=== PATIENT | female | born 1960 | race Caucasian/White ===

== ENCOUNTER 2022-06-04 14:03 | Emergency (ER) | payer MEDICAID, OTHER ==
[~2022-06-04] VITALS: Ht 172.7 cm; Wt 56.7 kg
[2022-06-04] MEDS ORDERED: IV NORMAL SALINE 1000 ML BAG IV ONE (14:45)
[2022-06-04] MEDS ORDERED: ANAS1TAB50 PO (14:50)
[2022-06-04] MEDS ORDERED: FOLI1TAB27 PO (14:50)
[2022-06-04] MEDS ORDERED: ROSU10TA2 PO (14:50)
[2022-06-04] MEDS ORDERED: THIA100T70 PO (14:51)
[2022-06-04] MEDS ORDERED: MULT400T12 PO (14:51)
[2022-06-04 15:31] LABS: CREATININE 0.5 mg/dL (0.6-1.3); POTASSIUM 3.7 mmol/L (3.5-5.1)
[2022-06-04 15:32] LABS: HEMATOCRIT 35.1 % (31.2-41.9); MEAN CORPUSCULAR HEMOGLOBIN 32.3 uug (24.7-32.8); MEAN CORPUSCULAR VOLUME 93.2 fL (75.5-95.3); PLATELET COUNT (AUTO) 226 K/uL (179-408)
[2022-06-04 15:36] LABS: BILIRUBIN,TOTAL 0.3 mg/dL (0.2-1.0); TOTAL PROTEIN, SERUM 8.2 g/dL (6.4-8.2)
--- NOTE | 2022-06-04 16:26 | NUR ---
IV removed. Catheter intact and site benign. Pressure and 4x4 gauze applied to site. No bleeding noted. Patient discharged to home in stable condition with brisk steady gait. Written and verbal after care instructions given to patient. Patient verbalized understanding and compliance of instructions but refused to sign the discharge papers, witnessed by chargemaster analyst Grace. Stressed follow up [facility] primary doctor and drug rehab for alcohol abuse or return to ER for worsening s/s.
== END 2022-06-04 16:26 | disposition home or self-care (01) ==
LOC: ER 14:06
DX: S00.11XA Contusion of right eyelid and periocular area, initial encounter (principal); W01.0XXA Fall on same level from slipping, tripping and stumbling without subsequent striking against object, initial encounter; Y92.89 Other specified places as the place of occurrence of the external cause; F10.10 Alcohol abuse, uncomplicated; Y90.8 Blood alcohol level of 240 mg/100 ml or more; Z98.82 Breast implant status; Z88.2 Allergy status to sulfonamides; R74.01 Elevation of levels of liver transaminase levels
CPT/HCPCS: 80053; 85025; 36415; 70450; 99284; 96360; 80320; J7040; A4663; G0480

== ENCOUNTER 2023-02-11 19:39 | Emergency (ER) | payer MEDICAID ==
[~2023-02-11] VITALS: Ht 167.6 cm; Wt 54.4 kg
[~2023-02-11 19:39] MED LIST: ANAS1TAB50 PO; FOLI1TAB27 PO; MULT400T12 PO; ROSU10TA2 PO; THIA100T70 PO
--- NOTE | 2023-02-11 19:42 | NUR ---
DR Ruelas at bedside MSE in progress
[2023-02-11] MEDS ORDERED: ACETAMINOPHEN ES 500 MG TABLET ONE (19:59)
[2023-02-11] MEDS ORDERED: IV NORMAL SALINE 1000 ML BAG IV ONE (20:00)
[2023-02-11] MEDS ORDERED: ACETAMINOPHEN ES 500 MG TABLET PO ONE (20:00)
[2023-02-11 20:15] LABS: HEMATOCRIT 38.6 % (31.2-41.9); MEAN CORPUSCULAR HEMOGLOBIN 31.4 uug (24.7-32.8); PLATELET COUNT (AUTO) 168 K/uL (179-408)
--- NOTE | 2023-02-11 20:18 | NUR ---
Pt is started on IVF 0.9NS [id number] and also received Tyeno 1000mg PO as ordered. Pt care continue.
[2023-02-11 20:27] LABS: CARBON DIOXIDE 28 mmol/L (21-32); CHLORIDE 104 mmol/L (98-107); CREATININE 0.4 mg/dL (0.6-1.3); GLUCOSE 104 mg/dL (74-106); POTASSIUM 3.8 mmol/L (3.5-5.1); UREA NITROGEN, BLOOD 13 mg/dL (7-18)
[2023-02-11 20:33] LABS: ALANINE AMINOTRANSFERASE 48 U/L (14-59); ALKALINE PHOSPHATASE 80 U/L (50-136); ASPARTATE AMINOTRANSFERASE 62 U/L (15-37); BILIRUBIN,DIRECT 0.1 mg/dL (0.0-0.2); BILIRUBIN,TOTAL 0.4 mg/dL (0.2-1.0); TOTAL PROTEIN, SERUM 8.3 g/dL (6.4-8.2)
[2023-02-11 20:40] LABS: THYROID STIMULATING HORMONE 2.297 mIU/mL (0.358-3.740)
--- NOTE | 2023-02-11 21:03 | NUR ---
Pt is noted off the Unit To CT. Pt care continue.
--- NOTE | 2023-02-11 21:40 | NUR ---
Pt is back from CT. Pt care continue.
--- NOTE | 2023-02-11 22:55 | NUR ---
Pt is stable as [employer] unit #[id number] Show up stated that Pt was reported missing as updates given to officers by MD on Pt condition and reasons why she came in the ER. Pt care continue.
--- NOTE | 2023-02-11 23:04 | NUR ---
Pt is noted off the unit with [employer] UNIT [id number] amanuel [place] will take Pt home as she is been discharge to home with all discharge instructions given and is stable.
[2023-02-11 23:07] VITALS: BP 132/68
== END 2023-02-11 23:09 | disposition home or self-care (01) ==
LOC: ER 19:39
DX: F10.10 Alcohol abuse, uncomplicated (principal); R07.89 Other chest pain; M79.642 Pain in left hand; R51.9 Headache, unspecified; E78.00 Pure hypercholesterolemia, unspecified; Z88.2 Allergy status to sulfonamides; Z79.899 Other long term (current) drug therapy; Y90.8 Blood alcohol level of 240 mg/100 ml or more
CPT/HCPCS: 80076; 80048; 84443; 85025; 85730; 36415; 93005; 71045; 73110; 73130; 70450; 70486; 72125; 99285; 96360; 96361; 80320; J7040; A4663; A9150; G0480

== ENCOUNTER 2023-03-29 22:44 | Emergency (ER) | payer MEDICAID ==
[~2023-03-29] VITALS: Ht 172.7 cm; Wt 55.3 kg
--- NOTE | 2023-03-29 23:00 | NUR ---
PT BIBA TO 3A WITH C/O INFECTED TOE AND GL TRIP AND FALL.
[2023-03-29] MEDS ORDERED: THIAMINE HCL 100 MG TABLET PO ONE (23:30)
[2023-03-29 23:36] LABS: HEMATOCRIT 38.1 % (31.2-41.9); MEAN CORPUSCULAR HEMOGLOBIN 30.9 uug (24.7-32.8); MEAN CORPUSCULAR VOLUME 90.8 fL (75.5-95.3); PLATELET COUNT (AUTO) 109 K/uL (179-408)
[2023-03-29 23:43] LABS: CREATININE 0.6 mg/dL (0.6-1.3); POTASSIUM 3.7 mmol/L (3.5-5.1)
[2023-03-29 23:48] LABS: BILIRUBIN,DIRECT 0.2 mg/dL (0.0-0.2); BILIRUBIN,TOTAL 0.5 mg/dL (0.2-1.0)
[2023-03-30] MEDS ORDERED: MAGNESIUM SULFATE/D5W 100 ML ONE ×2 (00:23→00:50)
[2023-03-30] MEDS ORDERED: THIAMINE HCL 100 MG TABLET ONE (00:23)
[2023-03-30] MEDS: MAGNESIUM SULFATE/D5W 100 ML IV SCH ×2 (00:30→01:15)
--- NOTE | 2023-03-30 00:50 | NUR ---
LAB CALLED WITH CRITICAL VALUE, ETOH - 335. AWARE.
[2023-03-30] MEDS ORDERED: CHLO25CA22 PO (01:13)
--- NOTE | 2023-03-30 01:25 | NUR ---
PT UP OOB AMB TO BR WITH STEADY GAIT.
--- NOTE | 2023-03-30 01:35 | NUR ---
PT WAS A , A AND O X 4 WITH NO C/O PAIN AND NAD OBSERVED.Patient discharged to home in stable condition. Written and verbal after care instructions given. Patient verbalizes understanding of instructions. Stressed follow up or return to ER for worsening s/s. A TAXI VOUCHER WAS OBTAINED FROM NURSING DIRECTOR WHOLESALE AND TAXI WAS CALLED.
--- NOTE | 2023-03-30 01:35 | NUR ---
PT DISCHARGED, WAITING FOR TAXI.
[2023-03-30 02:12] VITALS: BP 127/72; TEMP 98.7; O2SAT 95
== END 2023-03-30 01:35 | disposition home or self-care (01) ==
LOC: ER 22:44
DX: S06.0X0A Concussion without loss of consciousness, initial encounter (principal); S90.111A Contusion of right great toe without damage to nail, initial encounter; K75.9 Inflammatory liver disease, unspecified; E83.42 Hypomagnesemia; F10.20 Alcohol dependence, uncomplicated; Z88.2 Allergy status to sulfonamides; Z79.899 Other long term (current) drug therapy; W01.0XXA Fall on same level from slipping, tripping and stumbling without subsequent striking against object, initial encounter; Y93.89 Activity, other specified; Y92.89 Other specified places as the place of occurrence of the external cause; Y99.8 Other external cause status; Y90.8 Blood alcohol level of 240 mg/100 ml or more
CPT/HCPCS: 80076; 80048; 83735; 85025; 36415; 73660; 70450; 99285; 80320; 96365; J3475 ×2; A4663; G0480

== ENCOUNTER 2023-04-02 04:09 | Emergency (ER) | payer MEDICAID ==
[~2023-04-02] VITALS: Ht 172.7 cm; Wt 56.7 kg
[~2023-04-02 04:09] MED LIST changes: +CHLO25CA22 PO
--- NOTE | 2023-04-02 04:25 | NUR ---
Dr. Ortiz evaluating patient at bedside. MSE in progress.
[2023-04-02 04:54] LABS: HEMATOCRIT 38.3 % (31.2-41.9); MEAN CORPUSCULAR VOLUME 91.3 fL (75.5-95.3); PLATELET COUNT (AUTO) 111 K/uL (179-408)
--- NOTE | 2023-04-02 05:42 | NUR ---
Patient sleeping comfortably in bed, eyes closed. No signs of acute distress noted.
[2023-04-02] MEDS ORDERED: MAGN64TA13 PO (05:59)
--- NOTE | 2023-04-02 07:17 | NUR ---
Received report from Frieda WATKINS
--- NOTE | 2023-04-02 07:20 | NUR ---
Asleep in bed at this time
--- NOTE | 2023-04-02 08:44 | NUR ---
remains asleep at this time. VSS
--- NOTE | 2023-04-02 09:53 | NUR ---
PT. woke up, able to walk with no difficulties
--- NOTE | 2023-04-02 09:53 | NUR ---
Patient discharged to home in stable condition. Written and verbal after care instructions given. Patient verbalizes understanding of instructions. Stressed follow up or return to ER for worsening s/s.
[2023-04-02 09:55] VITALS: BP 117/74; TEMP 98; O2SAT 99
== END 2023-04-02 09:55 | disposition home or self-care (01) ==
LOC: ER 04:09
DX: S90.411D Abrasion, right great toe, subsequent encounter (principal); F10.129 Alcohol abuse with intoxication, unspecified; M79.674 Pain in right toe(s); Z88.2 Allergy status to sulfonamides; Z79.899 Other long term (current) drug therapy; W18.39XD Other fall on same level, subsequent encounter; Y90.8 Blood alcohol level of 240 mg/100 ml or more
CPT/HCPCS: 36415; 83735; 85025; A4663; G0480

== ENCOUNTER 2023-05-16 12:22 | Emergency (ER) | payer MEDICAID ==
[~2023-05-16] VITALS: Ht 172.7 cm; Wt 54.4 kg
[~2023-05-16 12:22] MED LIST changes: +MAGN64TA13 PO
[2023-05-16] MEDS ORDERED: IV NORMAL SALINE 1000 ML BAG IV ONE (12:45)
[2023-05-16 12:57] LABS: BASOPHILS % (AUTO) 0.3 % (0.0-2.0); EOSINOPHILS # (AUTO) 0.1 K/uL (0.0-0.7); EOSINOPHILS % (AUTO) 1.7 % (0.0-7.0); HEMATOCRIT 38.6 % (31.2-41.9); HEMOGLOBIN 12.9 g/dL (10.9-14.3); LYMPHOCYTES # (AUTO) 2.9 K/uL (0.8-4.8); LYMPHOCYTES % (AUTO) 35.7 % (20.5-51.5); MEAN CORPUSCULAR HEMOGLOBIN 30.9 uug (24.7-32.8); MEAN CORPUSCULAR HGB CONC 33 g/dL (32.3-35.6); MEAN CORPUSCULAR VOLUME 92.8 fL (75.5-95.3); MONOCYTES # (AUTO) 0.4 K/uL (0.1-1.30); MONOCYTES % (AUTO) 4.7 % (0.0-11.0); NEUTROPHILS # (AUTO) 4.7 K/uL (1.8-8.9); NEUTROPHILS % (AUTO) 57.6 % (38.5-71.5); PLATELET COUNT (AUTO) 261 K/uL (179-408); RED BLOOD CELL COUNT(AUTO) 4.17 MIL/uL (3.63-4.92); RED CELL DISTRIBUTION WIDTH 13.7 % (12.3-17.7); WHITE BLOOD COUNT (AUTO) 8.1 K/uL (3.8-11.8)
[2023-05-16 13:07] LABS: DIFFERENTIAL COMMENT 1
[2023-05-16 13:10] LABS: CALCIUM 9.4 mg/dL (8.5-10.1); CARBON DIOXIDE 29 mmol/L (21-32); CHLORIDE 106 mmol/L (98-107); CREATININE 0.5 mg/dL (0.6-1.3); GLUCOSE 114 mg/dL (74-106); POTASSIUM 3.4 mmol/L (3.5-5.1); SODIUM SERUM 146 mmol/L (136-145); UREA NITROGEN, BLOOD 12 mg/dL (7-18)
[2023-05-16 13:19] LABS: ALANINE AMINOTRANSFERASE 18 U/L (14-59); ALBUMIN 3.5 g/dL (3.4-5.0); ALKALINE PHOSPHATASE 58 U/L (50-136); ASPARTATE AMINOTRANSFERASE 18 U/L (15-37); BILIRUBIN,DIRECT < 0.1 mg/dL (0.0-0.2); BILIRUBIN,TOTAL 0.3 mg/dL (0.2-1.0); TOTAL PROTEIN, SERUM 8.2 g/dL (6.4-8.2)
[2023-05-16 14:24] VITALS: BP 116/88; O2SAT 99
== END 2023-05-16 14:30 | disposition home or self-care (01) ==
LOC: ER 12:27 → MERGE 12:27 → ER 14:30
DX: F10.20 Alcohol dependence, uncomplicated (principal); R55 Syncope and collapse; R07.89 Other chest pain; E78.5 Hyperlipidemia, unspecified; Z88.2 Allergy status to sulfonamides; Z79.899 Other long term (current) drug therapy; Y90.9 Presence of alcohol in blood, level not specified
CPT/HCPCS: 99285; 96360; 70450; 71045; 80076; 80048; 85025; 85730; 84484; 93005; J7040; A4663

== ENCOUNTER 2023-05-16 19:39 | Emergency (ER) | payer MEDICAID ==
[~2023-05-16] VITALS: Ht 157.5 cm; Wt 54.4 kg
[2023-05-16] MEDS ORDERED: LORAZEPAM 2 MG/1 ML VIAL IM ONE (20:30)
[2023-05-16] MEDS ORDERED: LORAZEPAM 2 MG/1 ML VIAL ONE (20:30)
[2023-05-16] MEDS ORDERED: HALOPERIDOL LACTATE 5 MG/1 ML VIAL IM ONE (20:30)
[2023-05-16] MEDS ORDERED: HALOPERIDOL LACTATE 5 MG/1 ML VIAL ONE (20:30)
[2023-05-16] MEDS ORDERED: LACOSAMIDE 200 MG in IV NORMAL SALINE 100 ML IV ONE (20:45)
[2023-05-16 22:05] VITALS: O2SAT 96
== END 2023-05-17 00:25 | disposition short-term general hospital (02) ==
LOC: ER 19:40
DX: R55 Syncope and collapse (principal); F29 Unspecified psychosis not due to a substance or known physiological condition; F10.129 Alcohol abuse with intoxication, unspecified; E78.5 Hyperlipidemia, unspecified; Z88.2 Allergy status to sulfonamides; Z79.899 Other long term (current) drug therapy; Z20.822 Contact with and (suspected) exposure to COVID-19; Y90.8 Blood alcohol level of 240 mg/100 ml or more
CPT/HCPCS: 87426; 36415; 99285; 96372 ×2; 80320; J1630; J2060; A4663; G0480

== ENCOUNTER 2023-09-21 14:20 | Emergency (ER) | payer MEDICAID ==
[~2023-09-21] VITALS: Ht 165.1 cm; Wt 63.5 kg
[2023-09-21 14:28] VITALS: O2SAT 98
== END 2023-09-21 14:43 | disposition left against medical advice (07) ==
LOC: ER 14:21
DX: Z53.21 Procedure and treatment not carried out due to patient leaving prior to being seen by health care provider (principal)
CPT/HCPCS: A4606; A4663

== ENCOUNTER 2024-02-11 22:32 | Emergency (ER) | payer MEDICAID ==
[~2024-02-11] VITALS: Ht 172.7 cm; Wt 56.7 kg
[2024-02-11] MEDS ORDERED: IV NS 1000 ML 1,000 ML IV ONE (23:00)
[2024-02-11 23:12] LABS: HEMATOCRIT 35.5 % (31.2-41.9); HEMOGLOBIN 12.3 g/dL (10.9-14.3); WHITE BLOOD COUNT (AUTO) 7.3 K/uL (3.8-11.8)
[2024-02-11 23:27] LABS: BASOPHILS # (AUTO) 0.1 K/UL (0.0-0.2); BASOPHILS % (AUTO) 1.5 % (0.0-2.0); CALCIUM 8.7 mg/dL (8.5-10.1); CREATININE 0.6 mg/dL (0.6-1.3); DIFFERENTIAL COMMENT 0; EOSINOPHILS # (AUTO) 0.3 K/uL (0.0-0.7); EOSINOPHILS % (AUTO) 3.6 % (0.0-7.0); LYMPHOCYTES # (AUTO) 1.3 K/uL (0.8-4.8); MEAN CORPUSCULAR HEMOGLOBIN 30.9 uug (24.7-32.8); MEAN CORPUSCULAR HGB CONC 35 g/dL (32.3-35.6); MEAN CORPUSCULAR VOLUME 88.7 fL (75.5-95.3); MONOCYTES # (AUTO) 0.5 K/uL (0.1-1.30); MONOCYTES % (AUTO) 6.7 % (0.0-11.0); NEUTROPHILS # (AUTO) 5.1 K/uL (1.8-8.9); NEUTROPHILS % (AUTO) 70.2 % (38.5-71.5); PLATELET COUNT (AUTO) 160 K/uL (179-408); POTASSIUM 3.3 mmol/L (3.5-5.1)
[2024-02-11 23:39] LABS: ALBUMIN 3.5 g/dL (3.4-5.0); BILIRUBIN,TOTAL 0.3 mg/dL (0.2-1.0); MAGNESIUM 1.5 mg/dL (1.8-2.4); TOTAL PROTEIN, SERUM 7.6 g/dL (6.4-8.2)
[2024-02-11] MEDS ORDERED: MVI-12 10 ML IV ONE (23:45)
[2024-02-11] MEDS ORDERED: MVI-12 10 ML ONE (23:56)
[2024-02-11] MEDS ORDERED: THIAMINE HCL 100 MG TABLET ONE (23:56)
[2024-02-12] MEDS: IV 1/2NS 1000 ML 1,000 ML IV ONE (00:01)
[2024-02-12] MEDS ORDERED: THIAMINE HCL 200 MG/2 ML VIAL ONE (00:10)
[2024-02-12] MEDS: THIAMINE HCL 200 MG/2 ML VIAL IV ONE (00:12)
[2024-02-12] MEDS ORDERED: MAGNESIUM SULFATE 1 GM/2 ML VIAL ONE (00:27)
[2024-02-12] MEDS ORDERED: POTASSIUM CHLORIDE 20 MEQ TAB.PRT.SR ONE (00:28)
[2024-02-12] MEDS: NORMAL SALINE IV ONE (00:30)
[2024-02-12] MEDS: MVI ADULT IV ONE (00:30)
[2024-02-12] MEDS: POTASSIUM CHLORIDE 20 MEQ TAB.PRT.SR PO ONE (00:35)
[2024-02-12] MEDS: MAGNESIUM SULFATE 2 GM in IV DEXTROSE 5% 100 ML IV ONE (00:40)
[2024-02-12 03:06] LABS: *BILIRUBIN,URIN NEGATIVE (NEGATIVE); *BLOOD, URINE 2+ (NEGATIVE); *COLOR,URINE YELLOW (YELLOW); *KETONES,URINE 1+ (NEGATIVE); *PROTEIN,URINE 1+ (NEGATIVE); *UROBILINOGEN,URINE 0.2 E.U./dl (NORMAL); LEUKOCYTE ESTERASE ,URINE TRACE (NEGATIVE); NITRITE, URINE NEGATIVE (NEGATIVE); UGLUCOSE NEGATIVE (NEGATIVE)
[2024-02-12 03:07] LABS: *CLARITY,URINE HAZY (CLEAR)
[2024-02-12 03:16] LABS: RBC,URINE 20-50 /HPF (0-3)
[2024-02-12 03:17] LABS: SQUAMOUS EPITHELIAL CELL,UR FEW /HPF (NONE SEEN); YEAST,URINE FEW /HPF (NONE SEEN)
[2024-02-12] MEDS ORDERED: THIA100T88 PO (03:24)
[2024-02-12] MEDS ORDERED: CEPH500C2 PO (03:24)
[2024-02-12] MEDS ORDERED: MULT-1045 PO (03:24)
[2024-02-12] MEDS ORDERED: FLUCONAZOLE 100 MG TABLET ONE (03:46)
[2024-02-12] MEDS ORDERED: CEphaleXIN 500 MG CAPSULE ONE (03:46)
[2024-02-12] MEDS: FLUCONAZOLE 100 MG TABLET PO ONE (03:51)
[2024-02-12] MEDS: CEphaleXIN 500 MG CAPSULE PO ONE (03:51)
[2024-02-12 06:43] VITALS: BP 114/62; TEMP 97.7; O2SAT 97
== END 2024-02-12 06:15 | disposition home or self-care (01) ==
LOC: ER 22:33
DX: S50.12XA Contusion of left forearm, initial encounter (principal); S00.83XA Contusion of other part of head, initial encounter; F10.129 Alcohol abuse with intoxication, unspecified; F10.10 Alcohol abuse, uncomplicated; R26.9 Unspecified abnormalities of gait and mobility; E87.6 Hypokalemia; E83.42 Hypomagnesemia; N39.0 Urinary tract infection, site not specified; E78.5 Hyperlipidemia, unspecified; Z98.890 Other specified postprocedural states; Z79.899 Other long term (current) drug therapy; Z60.2 Problems related to living alone; Z88.2 Allergy status to sulfonamides; Y90.0 Blood alcohol level of less than 20 mg/100 ml; W18.39XA Other fall on same level, initial encounter; Y93.89 Activity, other specified; Y92.89 Other specified places as the place of occurrence of the external cause; Y99.8 Other external cause status
CPT/HCPCS: 36415; 70450; 71045; 72170; 73090; 83735; 84484; 85025; 85610; A4606; A4663; G0480; J3411; J3475; J3490; J7040

== ENCOUNTER 2024-02-16 16:04 | Emergency (ER) | payer MEDICAID ==
[~2024-02-16] VITALS: Ht 172.7 cm; Wt 57.2 kg
[~2024-02-16 16:04] MED LIST changes: +CEPH500C2 PO; +MULT-1045 PO; +THIA100T88 PO
[2024-02-16] MEDS ORDERED: THIAMINE HCL 100 MG TABLET ONE (16:19)
[2024-02-16] MEDS: THIAMINE HCL 100 MG TABLET PO ONE (16:41)
[2024-02-16] MEDS: IV NORMAL SALINE 1000 ML BAG IV ONE (16:41)
[2024-02-16 16:46] LABS: *BILIRUBIN,URIN NEGATIVE (NEGATIVE); *BLOOD, URINE 2+ (NEGATIVE); *CLARITY,URINE CLOUDY (CLEAR); *COLOR,URINE YELLOW (YELLOW); *KETONES,URINE NEGATIVE (NEGATIVE); *PROTEIN,URINE NEGATIVE (NEGATIVE); *UROBILINOGEN,URINE 0.2 E.U./dl (NORMAL); LEUKOCYTE ESTERASE ,URINE TRACE (NEGATIVE); NITRITE, URINE NEGATIVE (NEGATIVE); UGLUCOSE NEGATIVE (NEGATIVE)
[2024-02-16 16:47] LABS: BASOPHILS % (AUTO) 0.3 % (0.0-2.0); EOSINOPHILS # (AUTO) 0.1 K/uL (0.0-0.7); EOSINOPHILS % (AUTO) 1.8 % (0.0-7.0); HEMATOCRIT 37.1 % (31.2-41.9); HEMOGLOBIN 12.3 g/dL (10.9-14.3); LYMPHOCYTES # (AUTO) 2.8 K/uL (0.8-4.8); LYMPHOCYTES % (AUTO) 38.6 % (20.5-51.5); MEAN CORPUSCULAR HEMOGLOBIN 30.3 uug (24.7-32.8); MEAN CORPUSCULAR HGB CONC 33 g/dL (32.3-35.6); MEAN CORPUSCULAR VOLUME 91.4 fL (75.5-95.3); MONOCYTES # (AUTO) 0.4 K/uL (0.1-1.30); MONOCYTES % (AUTO) 5.5 % (0.0-11.0); NEUTROPHILS # (AUTO) 3.9 K/uL (1.8-8.9); NEUTROPHILS % (AUTO) 53.8 % (38.5-71.5); PLATELET COUNT (AUTO) 276 K/uL (179-408); RED BLOOD CELL COUNT(AUTO) 4.06 MIL/uL (3.63-4.92); RED CELL DISTRIBUTION WIDTH 13.6 % (12.3-17.7); WHITE BLOOD COUNT (AUTO) 7.3 K/uL (3.8-11.8)
[2024-02-16 17:00] LABS: MAGNESIUM 1.8 mg/dL (1.8-2.4)
[2024-02-16 17:02] LABS: CALCIUM 8.9 mg/dL (8.5-10.1); CARBON DIOXIDE 29 mmol/L (21-32); CHLORIDE 105 mmol/L (98-107); CREATININE 0.4 mg/dL (0.6-1.3); GLUCOSE 111 mg/dL (74-106); POTASSIUM 4.1 mmol/L (3.5-5.1); SODIUM SERUM 145 mmol/L (136-145); UREA NITROGEN, BLOOD 11 mg/dL (7-18)
[2024-02-16 17:07] LABS: ACETAMINOPHEN < 10.0 ug/mL (10-30); ALANINE AMINOTRANSFERASE 45 U/L (14-59); ALBUMIN 3.5 g/dL (3.4-5.0); ALKALINE PHOSPHATASE 70 U/L (50-136); ASPARTATE AMINOTRANSFERASE 42 U/L (15-37); BILIRUBIN,TOTAL 0.3 mg/dL (0.2-1.0); TOTAL PROTEIN, SERUM 7.8 g/dL (6.4-8.2)
[2024-02-16 17:13] LABS: DIFFERENTIAL COMMENT 1
[2024-02-16 17:20] LABS: BILIRUBIN,DIRECT < 0.1 mg/dL (0.0-0.2)
[2024-02-16 18:00] VITALS: BP 130/74; TEMP 98; O2SAT 99
[2024-02-16 18:13] LABS: WBC,URINE NONE SEEN /HPF (0-3)
[2024-02-16 18:14] LABS: BACTERIA,URINE FEW /HPF (NONE SEEN); SQUAMOUS EPITHELIAL CELL,UR FEW /HPF (NONE SEEN)
[2024-02-16 19:57] LABS: ETHANOL 254 MG/DL (0-10)
[2024-02-16 19:58] LABS: *AMPHETAMINE, URINE NEGATIVE (NEGATIVE); *BENZODIAZEPINE, URINE POSITIVE (NEGATIVE); *CANNABINOID, URINE NEGATIVE (NEGATIVE); *COCCAINE, URINE NEGATIVE (NEGATIVE); *OPIATE, URINE NEGATIVE (NEGATIVE); *PHENCYCLIDINE SCREEN,URINE NEGATIVE (NEGATIVE); FENTANYL, URINE NEGATIVE (NEGATIVE)
[2024-02-16 20:13] LABS: *BARBITURATE, URINE NEGATIVE (NEGATIVE)
== END 2024-02-16 18:00 | disposition home or self-care (01) ==
LOC: ER 16:04
DX: F10.129 Alcohol abuse with intoxication, unspecified (principal); E86.0 Dehydration; R78.9 Finding of unspecified substance, not normally found in blood; E78.5 Hyperlipidemia, unspecified; Z98.890 Other specified postprocedural states; Z79.899 Other long term (current) drug therapy; Z60.2 Problems related to living alone; Z88.2 Allergy status to sulfonamides; Y90.9 Presence of alcohol in blood, level not specified
CPT/HCPCS: 80076; 80048; 81001; 82607; 83735; 85025; 36415; 99283; 80299; 80320; 80307; J7040; A4606; A4663; G0480

== ENCOUNTER 2024-02-20 15:48 | Emergency (ER) | payer MEDICAID ==
[~2024-02-20] VITALS: Ht 167.6 cm; Wt 57.2 kg
[2024-02-20 16:08] VITALS: O2SAT 99
[2024-02-20] MEDS: IV NORMAL SALINE 1000 ML BAG IV ONE (16:15)
[2024-02-20] MEDS: ONDANSETRON 4 MG/2 ML VIAL IV ONE (16:15)
[2024-02-20 16:38] LABS: BASOPHILS % (AUTO) 0.7 % (0.0-2.0); EOSINOPHILS # (AUTO) 0.1 K/uL (0.0-0.7); EOSINOPHILS % (AUTO) 1.2 % (0.0-7.0); HEMOGLOBIN 12.3 g/dL (10.9-14.3); LYMPHOCYTES % (AUTO) 31.2 % (20.5-51.5); MEAN CORPUSCULAR HEMOGLOBIN 30.3 uug (24.7-32.8); MEAN CORPUSCULAR HGB CONC 33 g/dL (32.3-35.6); MEAN CORPUSCULAR VOLUME 91.2 fL (75.5-95.3); MONOCYTES # (AUTO) 0.3 K/uL (0.1-1.30); NEUTROPHILS # (AUTO) 4.1 K/uL (1.8-8.9); NEUTROPHILS % (AUTO) 62.9 % (38.5-71.5); PLATELET COUNT (AUTO) 259 K/uL (179-408); RED BLOOD CELL COUNT(AUTO) 4.06 MIL/uL (3.63-4.92); WHITE BLOOD COUNT (AUTO) 6.4 K/uL (3.8-11.8)
[2024-02-20 16:54] LABS: ALANINE AMINOTRANSFERASE 36 U/L (14-59); ALBUMIN 3.7 g/dL (3.4-5.0); ALKALINE PHOSPHATASE 71 U/L (50-136); ASPARTATE AMINOTRANSFERASE 44 U/L (15-37); BILIRUBIN,DIRECT 0.1 mg/dL (0.0-0.2); BILIRUBIN,TOTAL 0.3 mg/dL (0.2-1.0); CALCIUM 8.9 mg/dL (8.5-10.1); CARBON DIOXIDE 28 mmol/L (21-32); CHLORIDE 103 mmol/L (98-107); CREATININE 0.4 mg/dL (0.6-1.3); GLUCOSE 93 mg/dL (74-106); POTASSIUM 3.6 mmol/L (3.5-5.1); SODIUM SERUM 140 mmol/L (136-145); TOTAL PROTEIN, SERUM 7.9 g/dL (6.4-8.2); UREA NITROGEN, BLOOD 13 mg/dL (7-18)
[2024-02-20 16:56] LABS: DIFFERENTIAL COMMENT 1
[2024-02-20] MEDS ORDERED: ONDANSETRON 4 MG/2 ML VIAL ONE (17:15)
== END 2024-02-20 18:23 | disposition home or self-care (01) ==
LOC: ER 15:48
DX: F10.129 Alcohol abuse with intoxication, unspecified (principal); E78.5 Hyperlipidemia, unspecified; Z88.2 Allergy status to sulfonamides; Z79.899 Other long term (current) drug therapy; Y90.8 Blood alcohol level of 240 mg/100 ml or more
CPT/HCPCS: 80076; 80048; 85025; 84484; 36415; 93005; 71045; 99285; 96361; 96374; 80320; J2405; J7040; A4606; A4663; G0480

== ENCOUNTER 2024-02-21 15:56 | Emergency (ER) | payer MEDICAID ==
[~2024-02-21] VITALS: Ht 167.6 cm; Wt 57.2 kg
[2024-02-21 16:59] VITALS: BP 133/74; TEMP 97; O2SAT 99
== END 2024-02-21 17:00 | disposition home or self-care (01) ==
LOC: ER 15:58
DX: F10.229 Alcohol dependence with intoxication, unspecified (principal); Z98.890 Other specified postprocedural states; Z79.899 Other long term (current) drug therapy; Z60.2 Problems related to living alone; Z88.2 Allergy status to sulfonamides; Y90.9 Presence of alcohol in blood, level not specified; W18.39XA Other fall on same level, initial encounter; Y93.89 Activity, other specified; Y92.89 Other specified places as the place of occurrence of the external cause; Y99.8 Other external cause status
CPT/HCPCS: A4606; A4663

== ENCOUNTER 2024-02-23 11:56 | Emergency (ER) | payer MEDICAID ==
[~2024-02-23] VITALS: Ht 167.6 cm; Wt 57.2 kg
[2024-02-23] MEDS: IV D5/ 0.9% NACL 1,000 ML IV ONE (12:15)
[2024-02-23] MEDS ORDERED: LORAZEPAM 2 MG/1 ML VIAL ONE (12:38)
[2024-02-23 12:39] LABS: BASOPHILS # (AUTO) 0.2 K/UL (0.0-0.2); BASOPHILS % (AUTO) 2.4 % (0.0-2.0); EOSINOPHILS % (AUTO) 0.6 % (0.0-7.0); HEMATOCRIT 37.9 % (31.2-41.9); HEMOGLOBIN 12.3 g/dL (10.9-14.3); LYMPHOCYTES # (AUTO) 1.3 K/uL (0.8-4.8); LYMPHOCYTES % (AUTO) 17.6 % (20.5-51.5); MEAN CORPUSCULAR HGB CONC 33 g/dL (32.3-35.6); MEAN CORPUSCULAR VOLUME 92.3 fL (75.5-95.3); MONOCYTES # (AUTO) 0.2 K/uL (0.1-1.30); MONOCYTES % (AUTO) 2.8 % (0.0-11.0); NEUTROPHILS # (AUTO) 5.8 K/uL (1.8-8.9); NEUTROPHILS % (AUTO) 76.6 % (38.5-71.5); PLATELET COUNT (AUTO) 219 K/uL (179-408); RED CELL DISTRIBUTION WIDTH 14.3 % (12.3-17.7); WHITE BLOOD COUNT (AUTO) 7.5 K/uL (3.8-11.8)
[2024-02-23] MEDS: LORAZEPAM 2 MG/1 ML VIAL IV ONE (12:44)
[2024-02-23 12:45] LABS: *BILIRUBIN,URIN NEGATIVE (NEGATIVE); *BLOOD, URINE 2+ (NEGATIVE); *CLARITY,URINE CLEAR (CLEAR); *COLOR,URINE LIGHT YELLOW (YELLOW); *KETONES,URINE NEGATIVE (NEGATIVE); *PROTEIN,URINE NEGATIVE (NEGATIVE); *UROBILINOGEN,URINE 0.2 E.U./dl (NORMAL); LEUKOCYTE ESTERASE ,URINE NEGATIVE (NEGATIVE); NITRITE, URINE NEGATIVE (NEGATIVE); UGLUCOSE NEGATIVE (NEGATIVE)
[2024-02-23] MEDS: IV NORMAL SALINE 1000 ML BAG IV ONE (12:45)
[2024-02-23] MEDS ORDERED: THIAMINE HCL 200 MG/2 ML VIAL ONE (12:46)
[2024-02-23] MEDS ORDERED: MAGNESIUM SULFATE/D5W 200 ML ONE (12:46)
[2024-02-23 12:47] LABS: CALCIUM 9.4 mg/dL (8.5-10.1); CARBON DIOXIDE 24 mmol/L (21-32); CHLORIDE 103 mmol/L (98-107); CREATININE 0.4 mg/dL (0.6-1.3); GLUCOSE 109 mg/dL (74-106); POTASSIUM 3.9 mmol/L (3.5-5.1); SODIUM SERUM 140 mmol/L (136-145); UREA NITROGEN, BLOOD 9 mg/dL (7-18)
[2024-02-23 12:53] LABS: ALANINE AMINOTRANSFERASE 35 U/L (14-59); ALBUMIN 3.9 g/dL (3.4-5.0); ALKALINE PHOSPHATASE 75 U/L (50-136); ASPARTATE AMINOTRANSFERASE 43 U/L (15-37); BILIRUBIN,DIRECT 0.1 mg/dL (0.0-0.2); BILIRUBIN,TOTAL 0.5 mg/dL (0.2-1.0); TOTAL PROTEIN, SERUM 8.3 g/dL (6.4-8.2)
[2024-02-23] MEDS: THIAMINE HCL 200 MG/2 ML VIAL IV ONE (12:53)
[2024-02-23 13:03] LABS: ETHANOL 299 MG/DL (0-10)
[2024-02-23 13:12] LABS: *AMPHETAMINE, URINE NEGATIVE (NEGATIVE); *BARBITURATE, URINE NEGATIVE (NEGATIVE); *BENZODIAZEPINE, URINE NEGATIVE (NEGATIVE); *CANNABINOID, URINE NEGATIVE (NEGATIVE); *COCCAINE, URINE NEGATIVE (NEGATIVE); *OPIATE, URINE NEGATIVE (NEGATIVE); *PHENCYCLIDINE SCREEN,URINE NEGATIVE (NEGATIVE); FENTANYL, URINE NEGATIVE (NEGATIVE)
[2024-02-23] MEDS: MAGNESIUM SULFATE 2 GM in IV DEXTROSE 5% 100 ML IV ONE (13:18)
[2024-02-23 14:00] LABS: WBC,URINE 0-3 /HPF (0-3)
[2024-02-23 14:01] LABS: BACTERIA,URINE NONE SEEN /HPF (NONE SEEN); SQUAMOUS EPITHELIAL CELL,UR FEW /HPF (NONE SEEN)
[2024-02-23 15:41] VITALS: O2SAT 97
== END 2024-02-23 15:42 | disposition home or self-care (01) ==
LOC: ER 11:56
DX: F10.129 Alcohol abuse with intoxication, unspecified (principal); Z98.890 Other specified postprocedural states; Z79.899 Other long term (current) drug therapy; Z60.2 Problems related to living alone; Z88.2 Allergy status to sulfonamides; Y90.8 Blood alcohol level of 240 mg/100 ml or more
CPT/HCPCS: 80076; 80048; 81001; 85025; 36415; 99284; 96361; 96365; 96375; 80320; 80307; J2060; J3475 ×2; J3411; J7060; J7040; A4606; A4663; G0480

== ENCOUNTER 2024-02-24 14:35 | Emergency (ER) | payer MEDICAID ==
[~2024-02-24] VITALS: Ht 167.6 cm; Wt 57.2 kg
[2024-02-24 14:40] VITALS: O2SAT 98
[2024-02-24 15:13] LABS: BASOPHILS # (AUTO) 0.1 K/UL (0.0-0.2); EOSINOPHILS # (AUTO) 0.1 K/uL (0.0-0.7); EOSINOPHILS % (AUTO) 1.7 % (0.0-7.0); HEMATOCRIT 38.3 % (31.2-41.9); HEMOGLOBIN 12.5 g/dL (10.9-14.3); LYMPHOCYTES # (AUTO) 2.2 K/uL (0.8-4.8); LYMPHOCYTES % (AUTO) 37.6 % (20.5-51.5); MEAN CORPUSCULAR HEMOGLOBIN 30.1 uug (24.7-32.8); MEAN CORPUSCULAR HGB CONC 33 g/dL (32.3-35.6); MONOCYTES # (AUTO) 0.2 K/uL (0.1-1.30); MONOCYTES % (AUTO) 3.6 % (0.0-11.0); NEUTROPHILS # (AUTO) 3.3 K/uL (1.8-8.9); NEUTROPHILS % (AUTO) 56.1 % (38.5-71.5); PLATELET COUNT (AUTO) 220 K/uL (179-408); RED BLOOD CELL COUNT(AUTO) 4.17 MIL/uL (3.63-4.92); RED CELL DISTRIBUTION WIDTH 14.2 % (12.3-17.7); WHITE BLOOD COUNT (AUTO) 5.8 K/uL (3.8-11.8)
[2024-02-24] MEDS: IV NORMAL SALINE 1000 ML BAG IV ONE (15:13)
[2024-02-24 15:20] LABS: DIFFERENTIAL COMMENT 1
[2024-02-24 15:38] LABS: *BILIRUBIN,URIN NEGATIVE (NEGATIVE); *BLOOD, URINE 2+ (NEGATIVE); *CLARITY,URINE CLEAR (CLEAR); *COLOR,URINE YELLOW (YELLOW); *KETONES,URINE NEGATIVE (NEGATIVE); *PROTEIN,URINE NEGATIVE (NEGATIVE); *UROBILINOGEN,URINE 0.2 E.U./dl (NORMAL); LEUKOCYTE ESTERASE ,URINE NEGATIVE (NEGATIVE); NITRITE, URINE NEGATIVE (NEGATIVE); UGLUCOSE NEGATIVE (NEGATIVE)
[2024-02-24 15:55] LABS: *AMPHETAMINE, URINE NEGATIVE (NEGATIVE); *BARBITURATE, URINE NEGATIVE (NEGATIVE); *BENZODIAZEPINE, URINE NEGATIVE (NEGATIVE); *CANNABINOID, URINE NEGATIVE (NEGATIVE); *COCCAINE, URINE NEGATIVE (NEGATIVE); *OPIATE, URINE NEGATIVE (NEGATIVE); *PHENCYCLIDINE SCREEN,URINE NEGATIVE (NEGATIVE); FENTANYL, URINE NEGATIVE (NEGATIVE)
[2024-02-24 18:12] LABS: SQUAMOUS EPITHELIAL CELL,UR FEW /HPF (NONE SEEN); WBC,URINE 0-3 /HPF (0-3)
[2024-02-24 18:13] LABS: BACTERIA,URINE NONE SEEN /HPF (NONE SEEN)
== END 2024-02-24 16:09 | disposition left against medical advice (07) ==
LOC: ER 14:36
DX: F10.129 Alcohol abuse with intoxication, unspecified (principal); Z98.890 Other specified postprocedural states; Z79.899 Other long term (current) drug therapy; Z60.2 Problems related to living alone; Z88.2 Allergy status to sulfonamides; Y90.0 Blood alcohol level of less than 20 mg/100 ml
CPT/HCPCS: 81001; 85025; 36415; 70450; 99284; 96360; 80320; 80307; J7040; A4606; A4663; G0480